=== PATIENT | male | born 1995 | race Caucasian/White ===

== ENCOUNTER 2016-12-11 07:04 | Emergency (ER) | payer MEDICAID ==
[~2016-12-11] VITALS: Ht 172.7 cm; Wt 63.5 kg
[2016-12-11 07:05] VITALS: BP 136/78; PULSE 77; RESP 14; TEMP 97.6; O2SAT 100
[2016-12-11] MEDS ORDERED: SODIUM CHLOR 0.9% 1000 ML INJ 1,000 ML IV SCH (07:19)
[2016-12-11 07:25] VITALS: RESP 16; O2SAT 100
--- NOTE | 2016-12-11 07:26 | PD ---
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 in pastx2 episodes in lifetime) PFSH Past Medical History Autoimmune Disease: No Cardiovascular Problems: No Diminished Hearing: No Gastrointestinal Disorders: Yes (pancreatitis) Genitourinary: No Musculoskeletal: No Neurologic: No Psychiatric: No Respiratory: No Immunizations Current: No Pancreatitis: Yes Past Surgical History Other Surgery: No Social History Alcohol Use: No Tobacco Use: Yes (1ppd) Substance Use: Yes (pot) Allergies-Medications (Allergen,Severity, Reaction): Coded Allergies: No Known Allergies (Verified , 12/11/16) Reported Meds & Prescriptions Reported Meds & Active Scripts Active No Active Prescriptions or Reported Medications Review of Systems Except as stated in HPI: all other systems reviewed are Neg Gastrointestinal: Positive: Nausea, Vomiting, Diarrhea, Abdominal Pain Physical Exam Narrative GENERAL: SKIN: Warm and dry. HEAD: Atraumatic. Normocephalic. EYES: Pupils equal and round. No scleral icterus. No injection or drainage. ENT: No nasal bleeding or discharge. Mucous membranes pink and moist. NECK: Trachea midline. No JVD. CARDIOVASCULAR: Regular rate and rhythm. RESPIRATORY: No accessory muscle use. Clear to auscultation. Breath sounds equal bilaterally. GASTROINTESTINAL: Abdomen soft, non-tender, nondistended. hyperactive bowel sounds MUSCULOSKELETAL: Extremities without clubbing, cyanosis, or edema. No obvious deformities. NEUROLOGICAL: Awake and alert. No obvious cranial nerve deficits. Motor grossly within normal limits. Five out of 5 muscle strength in the arms and legs. Normal speech. PSYCHIATRIC: Appropriate mood and affect; insight and judgment normal. Data Data Last Documented VS Vital Signs Date Time Temp Pulse Resp B/P Pulse Ox O2 Delivery O2 Flow Rate FiO2 12/11/16 07:25 16 100 Room Air 12/11/16 07:05 97.6 77 136/78 Orders Complete Blood Count With Diff (12/11/16 07:19) Comprehensive Metabolic Panel (12/11/16 07:19) Lipase (12/11/16 07:19) Iv Access Insert/Monitor (12/11/16 07:19) Ecg Monitoring (12/11/16 07:19) Oximetry (12/11/16 07:19) NPO (12/11/16 07:19) Ondansetron Inj (Zofran Inj) (12/11/16 07:30) Sodium Chlor 0.9% 1000 Ml Inj (Ns 1000 M (12/11/16 07:19) Sodium Chloride 0.9% Flush (Ns Flush) (12/11/16 07:30) Dicyclomine Inj (Bentyl Inj) (12/11/16 07:30) Labs Laboratory Tests Test 12/11/16 07:35 White Blood Count 6.2 TH/MM3 Red Blood Count 5.25 MIL/MM3 Hemoglobin 15.3 GM/DL Hematocrit 45.4 % Mean Corpuscular Volume 86.4 FL Mean Corpuscular Hemoglobin 29.1 PG Mean Corpuscular Hemoglobin 33.7 % Concent Red Cell Distribution Width 11.5 % Platelet Count 213 TH/MM3 Mean Platelet Volume 8.6 FL Neutrophils (%) (Auto) 74.8 % Lymphocytes (%) (Auto) 13.2 % Monocytes (%) (Auto) 10.5 % Eosinophils (%) (Auto) 0.8 % Basophils (%) (Auto) 0.7 % Neutrophils # (Auto) 4.7 TH/MM3 Lymphocytes # (Auto) 0.8 TH/MM3 Monocytes # (Auto) 0.7 TH/MM3 Eosinophils # (Auto) 0.0 TH/MM3 Basophils # (Auto) 0.0 TH/MM3 CBC Comment DIFF FINAL Differential Comment Sodium Level 139 MEQ/L Potassium Level 4.0 MEQ/L Chloride Level 103 MEQ/L Carbon Dioxide Level 29.7 MEQ/L Anion Gap 6 MEQ/L Blood Urea Nitrogen 20 MG/DL Creatinine 0.87 MG/DL Estimat Glomerular Filtration 110 ML/MIN Rate Random Glucose 102 MG/DL Calcium Level 8.6 MG/DL Total Bilirubin 0.3 MG/DL Aspartate Amino Transf 17 U/L (AST/SGOT) Alanine Aminotransferase 21 U/L (ALT/SGPT) Alkaline Phosphatase 76 U/L Total Protein 7.2 GM/DL Albumin 3.6 GM/DL Lipase 80 U/L [facility] Medical Decision Making Medical Screen Exam Complete: Yes Emergency Medical Condition: Yes Medical Record Reviewed: Yes Differential Diagnosis viral v bacterial gastroenteritis vs pancreatitis vs electrolyte/renal abnl Narrative Course AFTER REEVALUATION PATIENT IS FOUND TO BE COMFORTABLE AND TOLERATING PO. CBC SHOWED NO LEUKOCYTOSIS BUT SLIGHT NEUTROPHILIA, ALSO LIPASE NL AND CMP WNL WELL. PATIENT WILL BE D/C TO HOME WITH NAUSEA, PO ABX AND PAIN MEDICATION Diagnosis Primary Impression: Bacterial gastroenteritis Scripts Ondansetron Odt (Zofran Odt)4 Mg Tab4 Mg SL Q6HR PRN (Nausea/Vomiting) #12 TAB Prov:Charbel Upton MD 12/11/16 Tramadol (Ultram)50 Mg Tab50 Mg PO Q4H PRN (PAIN) #28 TAB Prov:Charbel Upton MD 12/11/16 Metronidazole (Flagyl)500 Mg [id number] Mg PO TID #21 TAB Prov:Charbel Upton MD 12/11/16 Ciprofloxacin 500 Mg [id number] Mg PO BID #14 TAB Prov:Charbel Upton MD 12/11/16 Disposition: 01 DISCHARGE HOME Condition: Stable Charbel Upton MD Dec 11, 2016 07:26
[2016-12-11] MEDS ORDERED: ONDANSETRON HCL 4 MG/2 ML VIAL IVP ONE (07:30)
[2016-12-11] MEDS ORDERED: DICYCLOMINE HCL 20 MG/2 ML VIAL IM ONE (07:30)
[2016-12-11] MEDS ORDERED: SODIUM CHLORIDE 0.9% FLUSH 10 ML FLUSH IV FLUSH PRN (07:30)
[2016-12-11 07:38] LABS: AUTOMATED NEUTROPHIL # 4.7 TH/MM3 (1.8-7.7); BASOPHIL % 0.7 % (0.0-2.0); EOSINOPHIL % 0.8 % (0.0-4.0); HEMATOCRIT 45.4 % (39.0-51.0); HEMO FLAGS DIFF FINAL; LYMPH % 13.2 % (9.0-44.0); LYMPHOCYTE # 0.8 TH/MM3 (1.0-4.8); MEAN CELL VOLUME 86.4 FL (80.0-100.0); MEAN CORPUSCULAR HEMOGLOBIN 29.1 PG (27.0-34.0); MEAN CORPUSCULAR HGB CONC 33.7 % (32.0-36.0); MONO % 10.5 % (0.0-8.0); NEUT % 74.8 % (16.0-70.0); PLATELET COUNT 213 TH/MM3 (150-450); RED BLOOD COUNT 5.25 MIL/MM3 (4.50-5.90); RED CELL DISTRIBUTION WIDTH 11.5 % (11.6-17.2); WHITE BLOOD COUNT 6.2 TH/MM3 (4.0-11.0)
[2016-12-11 07:47] LABS: CHLORIDE 103 MEQ/L (98-107); SODIUM (NA) 139 MEQ/L (136-145)
[2016-12-11 07:51] LABS: ANION GAP 6 MEQ/L (5-15); BICARBONATE 29.7 MEQ/L (21.0-32.0); BLOOD UREA NITROGEN 20 MG/DL (7-18)
[2016-12-11 07:54] LABS: ALT (GPT) 21 U/L (12-78); AST (GOT) 17 U/L (15-37); GLOMERULAR FILTRATION RATE 110 ML/MIN (>89)
[2016-12-11 07:55] LABS: TOTAL BILIRUBIN ADULT 0.3 MG/DL (0.2-1.0)
[2016-12-11 07:57] LABS: ALKALINE PHOSPHATASE 76 U/L (45-117)
[2016-12-11] MEDS ORDERED: CIPR500T2 PO (08:11)
[2016-12-11] MEDS ORDERED: ZOFR4TAB3 SL (08:11)
[2016-12-11] MEDS ORDERED: ULTR50TA5 PO (08:11)
[2016-12-11] MEDS ORDERED: METR-1 PO (08:11)
[2016-12-11 08:56] VITALS: BP 123/74
== END 2016-12-11 08:57 | disposition home or self-care (01) ==
LOC: PHED 07:04
DX: A04.9 Bacterial intestinal infection, unspecified (principal); F17.210 Nicotine dependence, cigarettes, uncomplicated; F12.10 Cannabis abuse, uncomplicated; Z87.19 Personal history of other diseases of the digestive system
CPT/HCPCS: 80053; 83690; 85025; 96361; 96372; 96374; 99284; J0500; J2405; J7030